=== PATIENT | female | born 1995 | race Caucasian/White ===

== ENCOUNTER 2019-06-12 14:10 | Emergency (ER) | payer OTHER, SELFPAY ==
[2019-06-12 14:30] VITALS: BP 138/78; PULSE 104; RESP 20; TEMP 37.3; O2SAT 98
--- NOTE | 2019-06-12 14:34 | ED.WOUNDLAC ---
HPI - Wound/Laceration General Chief Complaint: Wound/Laceration Stated Complaint: Laceration right hand Time Seen by Provider: 06/12/19 14:34 Source: patient and family History of Present Illness HPI narrative: Patient was washing a glass at home and broke the class presents with a superficial laceration to right fifth finger. Bleeding controlled at present. Up-to-date with tetanus shot. No numbness or tingling full range of motion of finger and hand. Extremity Location: Right: hand (dorsal side base of right fifth finger) Related Data Home Medications Medication Instructions Recorded Confirmed No Home Medications 06/12/19 06/12/19 Allergies Allergy/AdvReac Type Severity Reaction Status Date / Time No Known Allergies Allergy Verified 06/12/19 14:27 Review of Systems Review of Systems: Narrative: CONSTITUTIONAL: Denies fever, chills, or sweats. EYES: Denies visual changes, redness, or discharge. ENT: Denies rhinorrhea, congestion, sore throat, or otalgia. CARDIOVASCULAR: Denies chest pain, palpitations, or edema. RESPIRATORY: Denies cough or dyspnea. GASTROINTESTINAL: Denies abdominal pain, nausea, vomiting, or diarrhea. GENITOURINARY: Denies dysuria or hematuria. SKIN: Denies rash or itching. laceration to base of fifth finger right hand MUSCULOSKELETAL: Denies back pain, joint pain, or myalgia. NEUROLOGIC: Denies headache, numbness, or weakness. PSYCHIATRIC: Denies anxiety or depression. PMFSH Comments At time of signature, agree with nursing past medical, surgical, social and family history. There is no relevant family history pertinent to the presenting complaint Exam Narrative: Exam Narrative: GENERAL: Well-appearing, well-nourished, and in no acute distress. HEAD: Normocephalic, atraumatic. EYES: PERRLA and EOMI. ENT: Nares clear, no rhinorrhea or epistaxis. Mucous membranes moist. NECK: Supple. CHEST: Clear to auscultation. No respiratory distress. HEART: Regular rate and rhythm. No murmur heard. Normal peripheral pulses. ABDOMEN: Soft, nontender, nondistended, normal active bowel sounds. EXTREMITIES: Normal range of motion. No edema. HAND EXAM - Skin intact, laceration to base of fifth finger right hand superficial , no swelling, no erythema, normal digit cascade with flexion of fingers, median nerve, ulnar nerve, radial nerve is intact. Normal sensation of each side of each finger, can perform `ok? sign, `cross over finger test of index and middle fingers? and `thumbs up? sign, normal thumb opposition, no scissoring. good capillary refill and radial pulse. normal flexion and extension of fingers and wrist. normal supination at wrist. Normal forearm and elbow exam. SKIN: Warm, dry, no rash. NEURO: No focal deficits. Alert and oriented x3. [place] Coma Scale Eye Opening: Spontaneous 4 [place] Coma Scale Motor: Obeys Commands 6 [place] Coma Scale Verbal: Oriented 5 [place] Coma Scale Total 15 Course Vital Signs Vital signs: Vital Signs Temperature 37.3 C 06/12/19 14:30 Pulse Rate 104 H 06/12/19 14:30 Respiratory Rate 06/12/19 14:30 Blood Pressure 138/78 06/12/19 14:30 Pulse Oximetry 98 06/12/19 14:30 Temperature 37.3 C 06/12/19 14:30 Pulse Rate 104 H 06/12/19 14:30 Respiratory Rate 06/12/19 14:30 Blood Pressure 138/78 06/12/19 14:30 Pulse Oximetry 98 06/12/19 14:30 Please FRED schedule a followup visit with your personal physician for further evaluation and treatment. Including recheck and discussion of your blood pressure. If your symptoms persist, change or worsen significantly before you can contact your personal physician then please, without delay, go to the emergency department for further evaluation Procedures Laceration superficial flap: Date: 06/12/19 Time: 14:49 Site: hand Side (If applicable): right Size (cm): 0.5 Description: flap Depth: simple, single layer Amount of anesthesia used (mL):
== END 2019-06-12 14:59 | disposition home or self-care (01) ==
PROVIDERS: Emergency Provider Nurse Practitioner Family
DX: S61.216A Laceration without foreign body of right little finger without damage to nail, initial encounter (principal); W25.XXXA Contact with sharp glass, initial encounter; Y93.G1 Activity, food preparation and clean up
CPT/HCPCS: 12001; 99212; G0463